=== PATIENT | male | born 1990 ===

== ENCOUNTER 2023-07-03 12:53 | Emergency (ER) | payer SELFPAY ==
[2023-07-03] MEDS ORDERED: Ibuprofen 800 MG TAB ONE (14:04)
[2023-07-03] MEDS ORDERED: Dexamethasone 4 MG TAB ONE (14:05)
== END 2023-07-03 15:12 | disposition home or self-care (01) ==
LOC: ERS 12:53
DX: H10.9 Unspecified conjunctivitis (principal); B34.9 Viral infection, unspecified; F17.290 Nicotine dependence, other tobacco product, uncomplicated
CPT/HCPCS: 87081; 87430; 99283; J8540

== ENCOUNTER 2023-08-21 13:57 | Emergency (ER) | payer SELFPAY ==
[2023-08-21 14:55] LABS: SARS-CoV-2 NAA Rapid Test Not Detected (NotDetected)
[2023-08-21] MEDS ORDERED: Ibuprofen 800 MG TAB ONE (15:34)
== END 2023-08-21 16:34 | disposition home or self-care (01) ==
LOC: ERS 13:57
DX: J10.1 Influenza due to other identified influenza virus with other respiratory manifestations (principal); F17.290 Nicotine dependence, other tobacco product, uncomplicated
CPT/HCPCS: 99283